=== PATIENT | male | born 1955 | race Caucasian/White ===

== ENCOUNTER 2023-06-18 09:54 | Outpatient (AMB) | payer MEDICARE, SELFPAY ==
[2023-06-18 10:05] VITALS: BP 134/86; PULSE 64; O2SAT 96; BMI 34.5
--- NOTE | 2023-06-18 10:05 | HO.NEPHOV ---
HPI HPI Comments History of Present Illness Details I had the privilege of seeing Papo follow-up of his chronic kidney disease and hypertension. He has gained some weight. He has been feeling well since aortic valve replacement. He does not have any chest pain, syncope, shortness of breath, proximal nocturnal dyspnea, orthopnea, pedal edema or orthostatic symptoms. He is compliant with his medications. He is less active. He has last serum creatinine was 1.5. All other systems have been reviewed and were negative. PFSH Family History Mother Cancer Father Heart attack Social History Alcohol intake: current Comment: social Patient Tobacco Use Status: Never used Tobacco Vital Signs 06/18/23 10:05 Height 5 ft 8 in Weight 227 lb BMI 34.5 BP 134/86 Blood Pressure Location Lt brachial Position Sitting Pulse 64 Pulse Source Pulse Oximeter Pulse Oximetry (%) 96 Oxygen Delivery Method Room Air Physical Exam Vital Signs: Last Vital Signs Pulse 64 06/18/23 10:05 BP 134/86 06/18/23 10:05 Pulse Ox 96 06/18/23 10:05 Oxygen Delivery Method Room Air 06/18/23 10:05 BMI result Body Mass Index 34.5 Const General: comfortable and no acute distress Orientation/consciousness: patient oriented x3 HEENT Head: Yes normocephalic Mouth: Normal oral and palatal mucosa present Eyes EOM: EOMs intact bilaterally Neck Neck: Yes supple Resp Auscultation: clear to auscultation bilaterally Cardio Jugular venous distension: no JVD Rate: regular rate GI Palpation (GI): Soft to palpation Auscultation: normal bowel sounds General: Yes no CVA tenderness Back/Spine/Pelvis Back: no CVA tenderness Skin General skin exam: no rashes or lesions noted Neuro General: patient oriented x3 and moves all extremities Extrem General: Yes no pedal edema Assessment & Plan Assessment & Plan (1) CKD (chronic kidney disease) stage 3, GFR 30-59 ml/min: Code(s): N18.30 - Chronic kidney disease, stage 3 unspecified Qualifiers: Chronic kidney disease stage 3 subtype: stage 3a (GFR 45-59) Qualified Code(s): N18.31 - Chronic kidney disease, stage 3a (2) Hypertension: Code(s): I10 - Essential (primary) hypertension Plan His renal functions are stable and is close to baseline. 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 His last 24 hour urine collection showed a GFR of 92 mL/minute. His urine output is good. He is tolerating his current dose of losartan. He avoids nonsteroidal anti-inflammatories and maintain good hydration. He is going disease PCP next week and Cardiology coli soon. He will need a follow-up echo echocardiogram. He needs to be more active and clearly needs to lose some weight. I did not make any medication changes today. I plan to do a repeat 24 hour urine collection for creatinine clearance after next visit. Follow-up lab work ordered. Answered all questions. Follow-up appointment given. Orders: Orders Creatinine Today N18.30 - Chronic kidney disease, stage 3 unspecified Protein Creatinine Ratio, Ur Today N18.30 - Chronic kidney disease, stage 3 unspecified Blood Urea Nitrogen Today N18.30 - Chronic kidney disease, stage 3 unspecified Electrolytes Today N18.30 - Chronic kidney disease, stage 3 unspecified Coding Level of Care Code Est Pt Level 4 (50435) Diagnoses Stage 3a chronic kidney disease N18.31 Chronic kidney disease stage 3 subtype: stage 3a (GFR 45-59) Hypertension I10 Results Reviewed Nephrology Results: No Data to Display
== END 2023-06-18 10:44 | disposition home or self-care (01) ==
PROVIDERS: PCP Nurse Practitioner Gerontology; Visit Provider Internal Medicine Nephrology
DX: N18.31 Chronic kidney disease, stage 3a (principal); I10 Essential (primary) hypertension
CPT/HCPCS: 99214

== ENCOUNTER → 2023-06-18 09:54 | Outpatient (BNVA) | payer MEDICARE, SELFPAY | PROVIDERS: PCP Nurse Practitioner Gerontology; Visit Provider Internal Medicine Nephrology | DX: I12.9 Hypertensive chronic kidney disease with stage 1 through stage 4 chronic kidney disease, or unspecified chronic kidney disease (principal); N18.31 Chronic kidney disease, stage 3a | CPT/HCPCS: 99212 ==

== ENCOUNTER 2024-01-07 09:22 | Outpatient (AMB) | payer MEDICARE, SELFPAY ==
--- NOTE | 2024-01-07 09:27 | HO.NEPHOV ---
Vital Signs 01/07/24 09:28 Height 5 ft 8 in Weight 216 lb 6 oz BMI 32.9 BP 112/80 Blood Pressure Location Rt brachial Position Sitting Pulse 59 Pulse Source Pulse Oximeter Pulse Oximetry (%) 96 Oxygen Delivery Method Room Air Intake Visit Reasons: 4-5 mon follow up- [facility] Poultryman Required: No Accompanied by: Self / Same As Patient Allergies No Known Allergies Allergy (Verified 01/07/24 09:29) HPI Comments Details: I had the privilege of seeing Papo follow-up of his chronic kidney disease and hypertension. He has gained some weight. He has been feeling well since aortic valve replacement. He does not have any chest pain, syncope, shortness of breath, proximal nocturnal dyspnea, orthopnea, pedal edema or orthostatic symptoms. He is compliant with his medications. He is less active. He has last serum creatinine was 1.24. All other systems have been reviewed and were negative [facility] Family History Mother Cancer Father Heart attack Social History Alcohol intake: current Comment: social Patient Tobacco Use Status: Never used Tobacco Review of Systems Const All systems reviewed & are unremarkable except as noted in HPI and below Physical Exam Vital Signs: Last Vital Signs Pulse 59 01/07/24 09:28 BP 112/80 01/07/24 09:28 Pulse Ox 96 01/07/24 09:28 Oxygen Delivery Method Room Air 01/07/24 09:28 BMI result Body Mass Index 32.9 Const General: comfortable and no acute distress Orientation/consciousness: patient oriented x3 HEENT Head: Yes normocephalic Mouth: Normal oral and palatal mucosa present Eyes EOM: EOMs intact bilaterally Neck Neck: Yes supple Resp Auscultation: clear to auscultation bilaterally Cardio Jugular venous distension: no JVD Rate: regular rate GI Palpation (GI): Soft to palpation Auscultation: normal bowel sounds General: Yes no CVA tenderness Back/Spine/Pelvis Back: no CVA tenderness Skin General skin exam: no rashes or lesions noted Neuro General: patient oriented x3 and moves all extremities Extrem General: Yes no pedal edema Results Reviewed Nephrology Results: No Data to Display Assessment & Plan Assessment & Plan (1) CKD (chronic kidney disease) stage 3, GFR 30-59 ml/min: Code(s): N18.30 - Chronic kidney disease, stage 3 unspecified Category: Medical Qualifiers: Chronic kidney disease stage 3 subtype: stage 3a (GFR 45-59) Qualified Code(s): N18.31 - Chronic kidney disease, stage 3a (2) Hypertension: Code(s): I10 - Essential (primary) hypertension Category: Medical Qualifiers: Hypertension type: primary hypertension Qualified Code(s): I10 - Essential (primary) hypertension Plan His renal functions are stable and is close to baseline. 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 His last 24 hour urine collection showed a GFR of 92 mL/minute. His urine output is good. He is tolerating his current dose of losartan. He avoids nonsteroidal anti-inflammatories and maintain good hydration. He needs to be more active and clearly needs to lose some more weight. I did not make any medication changes today. I plan to do a repeat 24 hour urine collection for creatinine clearance with time. Follow-up lab work ordered. Answered all questions. Follow-up appointment given Orders: Orders Creatinine 6 Months I10 - Essential (primary) hypertension, N18.31 - Chronic kidney disease, stage 3a Blood Urea Nitrogen 6 Months I10 - Essential (primary) hypertension, N18.31 - Chronic kidney disease, stage 3a Electrolytes 6 Months I10 - Essential (primary) hypertension, N18.31 - Chronic kidney disease, stage 3a Coding Level of Care Code Est Pt Level 4 (42071) Diagnoses Stage 3a chronic kidney disease N18.31 Chronic kidney disease stage 3 subtype: stage 3a (GFR 45-59) Primary hypertension I10 Hypertension type: primary hypertension
[2024-01-07 09:28] VITALS: BP 112/80; PULSE 59; O2SAT 96; BMI 32.9
== END 2024-01-07 09:52 | disposition home or self-care (01) ==
PROVIDERS: PCP Nurse Practitioner Gerontology; Visit Provider Internal Medicine Nephrology
DX: N18.31 Chronic kidney disease, stage 3a (principal); I10 Essential (primary) hypertension
CPT/HCPCS: 99214

== ENCOUNTER → 2024-01-07 09:22 | Outpatient (BNVA) | payer MEDICARE, SELFPAY | PROVIDERS: PCP Nurse Practitioner Gerontology; Visit Provider Internal Medicine Nephrology | DX: I12.9 Hypertensive chronic kidney disease with stage 1 through stage 4 chronic kidney disease, or unspecified chronic kidney disease (principal); N18.31 Chronic kidney disease, stage 3a | CPT/HCPCS: 99212 ==

== ENCOUNTER 2024-07-07 10:06 | Outpatient (AMB) | payer MEDICARE, OTHER, SELFPAY ==
--- NOTE | 2024-07-07 10:30 | HO.NEPHOV ---
Vital Signs 07/07/24 10:31 Height 5 ft 8 in Weight 220 lb 4 oz BMI 33.5 BP 134/70 Blood Pressure Location Lt brachial Position Sitting Pulse 61 Pulse Source Pulse Oximeter Pulse Oximetry (%) 95 Oxygen Delivery Method Room Air Intake Visit Reasons: 6m follow up-Conf Accompanied by: Self / Same As Patient Allergies No Known Allergies Allergy (Verified 07/07/24 10:31) HPI Comments Details: Papo was seen in follow-up of his chronic kidney disease and hypertension. He has gained some weight. He has been feeling well since aortic valve replacement. He does not have any chest pain, syncope, shortness of breath, proximal nocturnal dyspnea, orthopnea, pedal edema or orthostatic symptoms. He is compliant with his medications. He is less active. He has last serum creatinine was 1.3. All other systems have been reviewed and were negative [facility] Family History Mother Cancer Father Heart attack Social History Alcohol intake: current Comment: social Patient Tobacco Use Status: Never used Tobacco Review of Systems Const All systems reviewed & are unremarkable except as noted in HPI and below Physical Exam Vital Signs: Last Vital Signs Pulse 61 07/07/24 10:31 BP 134/70 07/07/24 10:31 Pulse Ox 95 07/07/24 10:31 Oxygen Delivery Method Room Air 07/07/24 10:31 BMI result Body Mass Index 33.5 Const General: comfortable and no acute distress Orientation/consciousness: patient oriented x3 HEENT Head: Yes normocephalic Mouth: Normal oral and palatal mucosa present Eyes EOM: EOMs intact bilaterally Neck Neck: Yes supple Resp Auscultation: clear to auscultation bilaterally Cardio Jugular venous distension: no JVD Rate: regular rate GI Palpation (GI): Soft to palpation Auscultation: normal bowel sounds General: Yes no CVA tenderness Back/Spine/Pelvis Back: no CVA tenderness Skin General skin exam: no rashes or lesions noted Neuro General: patient oriented x3 and moves all extremities Extrem General: Yes no pedal edema Results Reviewed Nephrology Results: No Data to Display Assessment & Plan Assessment & Plan (1) CKD (chronic kidney disease) stage 3, GFR 30-59 ml/min: Code(s): N18.30 - Chronic kidney disease, stage 3 unspecified Category: Medical Qualifiers: Chronic kidney disease stage 3 subtype: stage 3a (GFR 45-59) Qualified Code(s): N18.31 - Chronic kidney disease, stage 3a (2) Hypertension: Code(s): I10 - Essential (primary) hypertension Category: Medical Qualifiers: Hypertension type: primary hypertension Qualified Code(s): I10 - Essential (primary) hypertension Plan His renal functions are stable and is close to baseline. 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 His last 24 hour urine collection showed a GFR of 92 mL/minute. His urine output is good. He is tolerating his current dose of losartan. He avoids nonsteroidal anti-inflammatories and maintain good hydration. He needs to be more active and clearly needs to lose some more weight. I did not make any medication changes today. I ordered repeat 24 hour urine collection for creatinine clearance prior to next visit . Follow-up lab work ordered. Answered all questions. Follow-up appointment given Orders: Orders Creatinine 6 Months I10 - Essential (primary) hypertension, N18.31 - Chronic kidney disease, stage 3a Creatinine Clearance Urine 24U Today I10 - Essential (primary) hypertension, N18.31 - Chronic kidney disease, stage 3a Electrolytes 6 Months I10 - Essential (primary) hypertension, N18.31 - Chronic kidney disease, stage 3a Blood Urea Nitrogen 6 Months I10 - Essential (primary) hypertension, N18.31 - Chronic kidney disease, stage 3a Protein Creatinine Ratio, Ur Today I10 - Essential (primary) hypertension, N18.31 - Chronic kidney disease, stage 3a Coding Level of Care Code Est Pt Level 4 (89577) Diagnoses Stage 3a chronic kidney disease N18.31 Chronic kidney disease stage 3 subtype: stage 3a (GFR 45-59) Primary hypertension I10 Hypertension type: primary hypertension
[2024-07-07 10:31] VITALS: BP 134/70; PULSE 61; O2SAT 95; BMI 33.5
--- OUTSIDE RECORDS SUMMARY | 2024-07-07 11:47 | XMS_ITS | Clinical Summary ---
Author Organization [facility] Address [address] [facility] [address] [place] [address] Phone Care Team Providers Care Telecommunications Cable Jointer Name Role Phone Kya Espino MERT Primary Care Provider [phone] Allergies Active Allergy Reactions Criticality Noted Date Comments Morphine Other (see comments) 08/04/2020 Medications aspirin (ST CHARY) 81 MG EC tablet Take 1 tablet by mouth every morning Active atorvastatin (LIPITOR) 40 MG tablet Take 1 tablet by mouth every night Active losartan (COZAAR) 25 MG tablet Take 1 tablet by mouth 1 (one) time each day Active metoprolol succinate XL (TOPROL-XL) 25 MG 24 hr tablet Take 12.5 tablets by mouth every night Active amoxicillin (AMOXIL) 500 MG capsule 4 CAPSULE GIVEN 1 HOUR PRIOR TO THE PROCEDURE Active Active Problems Problem Noted Date Diagnosed Date Aortic valve stenosis 04/23/2022 Cardiac murmur 04/23/2022 Chronic low back pain 04/23/2022 History of aortic valve replacement 04/23/2022 Hyperlipidemia 04/23/2022 Obese class I 04/23/2022 Hypertension 02/09/2021 Stage 3a chronic kidney disease 08/04/2020 Hypertensive renal disease 08/04/2020 Immunizations Name Administration Dates Next Due Influenza Whole 12/08/2020 Pneumococcal Polysaccharide 10/10/2016 Family History Relation Status Comments Father Mother Social History Tobacco Use Types Packs/Day Years Used Date Smoking Tobacco: Former Smokeless Tobacco: Never Tobacco Cessation:Counseling Given: Not Answered Alcohol Use Standard Drinks/Week Comments Yes 0 (1 standard drink = 0.6 oz pure alcohol) Alcoholic Drinks/day: Occasional social drink Sex and Gender Information Value Date Recorded Sex Assigned at Not on file Legal Sex Male 5:06 PM EST Gender Identity Not on file Sexual Orientation Not on file Last Filed Vital Signs Vital Sign Reading Time Taken Comments Blood Pressure 130/80 12/06/2022 2:29 PM EDT Pulse 68 12/06/2022 2:29 PM EDT Temperature - - Respiratory Rate - - Oxygen Saturation 97% 02/09/2021 2:15 PM EST Inhaled Oxygen Concentration - - Weight 101 kg (222 lb 9.6 oz) 12/06/2022 2:29 PM EDT Height 172.7 cm (5' 8 ) 02/09/2021 2:15 PM EST Body Mass Index 33.85 02/09/2021 2:15 PM EST Plan of Treatment Health Maintenance Due Date Last Done Comments Colorectal Cancer Screening: Annual FOBT 2005 Colorectal Cancer Screening: Colonoscopy 2005 Colorectal Cancer Screening: Sigmoidoscopy 2005 Pneumococcal Vaccine: 65+ Ye ars (2 of 2 - PCV) 10/10/2017 10/10/2016 Influenza Vaccine (Season Ended) 2024 12/09/19 21 Hepatitis B Vaccine Aged Out No longe r eligible based on patient's age to complete this topic Insurance MEDICARE [facility] MEDICARE [facility] Care Teams Telecommunications Cable Jointer Relationship Specialty Start Date End Date Kya Espino NP [address] [place] [id number] PCP - General Nurse Practitioner 10/23/21
--- OUTSIDE RECORDS SUMMARY | 2024-07-07 11:47 | XMS_ITS | Clinical Summary ---
Author Organization Patient Business Ser [facility] Address [address] [place] [address] Care Team Providers Care Evs Tech Name Role Phone Kya Espino NP Primary Care Provider [phone] Allergies Active Allergy Reactions Criticality Noted Date Comments Morphine Medications losartan (COZAAR) 25 mg tablet TAKE 1 TABLET BY MOUTH EVERY DAY Active metoprolol succinate (TOPROL-XL) 25 mg 24 hr tablet TAKE 1 TABLET BY MOUTH EVERY DAY Active aspirin 81 mg EC tablet Take 1 Tab by mouth daily Active atorvastatin (LIPITOR) 40 mg tablet Take 1 Tab by mouth at bedtime Active amoxicillin (AMOXIL) 500 mg capsule Take 4 Caps by mouth See Admin Instructions. Take 1 hour prior to dental procedure Active Active Problems Problem Noted Date Diagnosed Date Hyperlipidemia Chest pain Overview (04/28/2024): CKD (chronic kidney disease) stage 3, GFR 30-59 ml/min Erectile dysfunction Hypertension Actinic keratosis Paroxysmal atrial fibrillation Immunizations Name Administration Dates Next Due PPD Test 03/11/2013 Tdap Tetanus diptheria acell ular pertussis (Boostrix; Adacel) 7yo and older 01/01/2013 influenza Split Preservative Free ID 12/30/2008 Surgical History Surgery Date Site/Laterality Comments OTHER SURGICAL HISTORY PROCEDURE: [place] RPLCMT AORTIC VALVE ANNULUS ENLGMENT NONC SINUS BACK SURGERY PROCEDURE: HISTORICAL BACK SURGERY; COMMENT: low back Medical History Medical History Date Comments Aortic valve replaced 08/07/2016 DX:Aortic valve replaced CKD (chronic kidney disease) stage 3, GFR 30-59 ml/min [facility]) 12/04/2018 DX:CKD (chronic kidney dise ase) stage 3, GFR 30-59 ml/min ([facility]) Hyperlipidemia 03/01/2015 DX:Hyperlipidemi a Actinic keratosis 07/23/2012 DX:Actinic ker atosis Erectile dysfunction 08/07/2016 DX:Erectile dysfunction Hypertension 03/13/2016 DX:Hypertension Paroxysmal atrial fibrillati on (CMS/HCC) 03/02/2009 DX:Paroxysmal atrial fibrill ation (HCC); COMMENT: After surgery for TAVR, needs antibiotic p/t dental procedures Family History Medical History Relation Name Comments Hypertension Brother Heart attack Father Emphysema Maternal Grandfather Hypertension Maternal Grandmother Breast cancer Mother Relation Name Status Comments Brother Father Maternal Grandfather Maternal Grandmother Mother Social History Tobacco Use Types Packs/Day Years Used Date Smoking Tobacco: Former Smokeless Tobacco: Never Alcohol Use Standard Drinks/Week Comments Yes 0 (1 standard drink = 0.6 oz pur e alcohol) Sex and Gender Information Value Date Recorded Sex Assigned at Male 03/23/2021 12:20 PM EST Legal Sex Male 12:06 PM EST Gender Identity Male 03/23/2021 12:20 PM EST Sexual Orientation Straight 03/23/2021 12 :20 PM EST Obstetrics History Last Filed Vital Signs Vital Sign Reading Time Taken Comments Blood Pressure 118/72 06/26/2023 9:00 AM EDT Pulse 77 06/26/2023 9:00 AM EDT Temperature - - Respiratory Rate - - Oxygen Saturation - - Inhaled Oxygen Concentration - - Weight 104 kg (230 lb) 06/26/2023 9:00 AM EDT Height 172.7 cm (5' 8 ) 06/26/2023 9:00 AM EDT Body Mass Index 34.97 06/26/2023 9:00 AM EDT Plan of Treatment Upcoming Encounters Date Type Department Care Team (Late st Contact Info) Description 09/22/2024 10:50 AM EDT Office Visit [facility] - [address] [facility] [address] [place] [id number] Shahzad Russell MD [address] [place] [address] Health Maintenance Due Date Last Done Comments COVID-19 Vaccine (#1) 1961 Pneumococcal Vaccine: 50+ Years (1 of 2 - PCV) 1975 Zoster Vaccines (1 of 2) 1975 RSV Immunization Adult Patients (1 - Risk 60-74 years 1-dose series) 2016 Abdominal Aortic Aneurysm (AAA) Screen 03/23/2021 Cholesterol Screening (Lipid Panel) 03/23/2021 Depression Screening 03/23/2021 Hepatitis C Screening 03/23/2021 Social Influencers of Health Screening 03/23/2021 Falls Risk Assessment 2021 DTaP,Tdap,and Td Vaccines (2 - Td or Tdap) 01/01/2023 01/01/2013 Medicare Annual Wellness Visit 06/14/2023 06/13/2022 Hypertension/CHF/CAD Annual BMP Blood Test 10/29/2023 Influenza Vaccine (Season Ended) 2024 01/02/2023, 01/16/2022, 12/30/2008 Colorectal Cancer Screening: Colonoscopy 01/26/2029 01/26/2019 HIB Vaccines Aged Out No longer eligi ble based on patient's age to complete this topic HPV Vaccines Aged Out No longer eligi ble based on patient's age to complete this topic Hepatitis A Vaccines Aged Out No long er eligible based on patient's age to complete this topic Hepatitis B Vaccines Aged Out No long er eligible based on patient's age to complete this topic IPV Vaccines Aged Out No longer eligi ble based on patient's age to complete this topic MMR Vaccines Aged Out No longer eligi ble based on patient's age to complete this topic Meningococcal ACWY Vaccine Aged Out N o longer eligible based on patient's age to complete this topic Meningococcal B Vaccine Aged Out No l onger eligible based on patient's age to complete this topic RSV Immunization Patients Under 20 months Aged Out No longer eligible b ased on patient's age to complete this topic Varicella Vaccines Aged Out No longer eligible based on patient's age to complete this topic Procedures Procedure Name Priority Date/Time Associated Diagnosis Comments COLONOSCOPY Routine 01/26/2019 from Last 3 Months or Most Recently Relevant to Health Maintenance Results * Colonoscopy (01/26/2019) Colonoscopy no interpretation , abstracted Anatomical Region Laterality Modality Other us Historical Provider HEALTH MAINTENANCE Final Result from Last 3 Months or Most Recently Relevant to Health Maintenance Insurance MEDICARE Care Teams Evs Tech Relationship Specialty Start Date End Date Kya Espino NP [address] [facility] [address] PCP - General 04/30/22
== END 2024-07-07 10:53 | disposition home or self-care (01) ==
LOC: HO.HKAS 10:06
PROVIDERS: PCP Nurse Practitioner Gerontology; Visit Provider Internal Medicine Nephrology
DX: N18.31 Chronic kidney disease, stage 3a (principal); I10 Essential (primary) hypertension
CPT/HCPCS: 99214

== ENCOUNTER → 2024-07-07 10:06 | Outpatient (BNVA) | payer MEDICARE, OTHER, SELFPAY | PROVIDERS: PCP Nurse Practitioner Gerontology; Visit Provider Internal Medicine Nephrology | DX: I12.9 Hypertensive chronic kidney disease with stage 1 through stage 4 chronic kidney disease, or unspecified chronic kidney disease (principal); N18.31 Chronic kidney disease, stage 3a | CPT/HCPCS: 99212 ==

== ENCOUNTER 2024-12-31 08:49 | Outpatient (REF) | payer MEDICARE, OTHER, SELFPAY ==
--- OUTSIDE RECORDS SUMMARY | 2024-12-31 09:24 | XMS_ITS | Clinical Summary ---
Author Organization [facility] Address [address] [facility] [address] [facility] [address] [place] [address] Phone Care Team Providers Care Preschool Teacher Name Role Phone Kya strauss MERT Primary Care Provider [phone] Allergies Active Allergy Reactions Criticality Noted Date [...] disease 08/04/2020 Hypertensive renal disease 08/04/2020 Immunizations Immunization Administration Dates Next Due Influenza Whole 12/08/2020 [...] Colorectal Cancer Screening: Sigmoidoscopy 2005 Pneumococcal Vaccine: 50+ Ye ars (2 of 2 - PCV) 10/10/2017 10/10/2016 Influenza Vaccine (#1) 2024 12/08/2020 Pneumococcal Vaccine: Peds ( 0 to 5 Years) and At-Risk Patients (6 to 49 Years) Discontinued 10/10/2016 Hepatitis B Vaccine Aged Out No longe r eligible based on patient's age to complete this topic Insurance Medicare [facility] Medicare [facility] [place] [id number] Care Teams Preschool Teacher Relationship Specialty Start Date End Date Kya Espino NP [address] [place] [id number] PCP - General Nurse Practitioner 10/23/21
--- OUTSIDE RECORDS SUMMARY | 2024-12-31 09:24 | XMS_ITS | Clinical Summary ---
Author Organization [facility] Address [address] [place] [address] Care Team Providers Care Sheet Metal Technician Name Role Phone Kya Espino NP Primary Care Provider [phone] Allergies Active Allergy Reactions Criticality Noted Date Comments Morphine Medications metoprolol succinate (TOPROL-XL) 25 mg 24 hr tablet Take 0.5 tablets (12.5 mg total) by mouth 1 (one) time each day. TAKE 1 TABLET BY MOUTH EVERY DAY Active aspirin 81 mg EC tablet Take 1 Tab by mouth daily Active atorvastatin (LIPITOR) 40 mg tablet Take 1 Tab by mouth at bedtime Active amoxicillin (AMOXIL) 500 mg capsule Take 4 Caps by mouth See Admin Instructions. Take 1 hour prior to dental procedure Active losartan (COZAAR) 25 mg tablet TAKE 1 TABLET BY MOUTH EVERY DAY 90 tablet 3 12/05/19 25 Active losartan (COZAAR) 25 mg tablet TAKE 1 TABLET BY MOUTH EVERY DAY 90 tablet 09/08/19 25 025 Discontinued Active Problems Problem Noted Date Diagnosed Date History of aortic valve repl acement with bioprosthetic valve 09/22/2024 Assessment & Plan (09/22/2024 12:41 PM EDT): Valve function is normal by physical exam. Will continue endocarditis prophylaxis with amoxicillin. Will repeat echocardiogram in a year. Ascending aorta dilation (CMS/HCC V24) Assessment & Plan (09/22/2024 12:41 PM EDT): Ascending aorta mildly dilated. We reviewed again the precaution and hypertension control. Will repeat echocardiogram next year. He is a former smoker and also has mild ascending aorta dilation. Will schedule abdominal aorta to make sure he does not have abdominal aorta dilation. Hyperlipidemia Chest pain Overview (04/28/2024): CKD (chronic kidney disease) stage 3, GFR 30-59 ml/min (CMS/HCC V24, CMS/HCC V28) Erectile dysfunction Hypertension Actinic keratosis Paroxysmal atrial fibrillation (CMS/HCC V24, CMS /HCC V28) Assessment & Plan (09/22/2024 12:41 PM EDT): Postop for AVR. No evidence of recurrent. Will continue low-dose metoprolol and aspirin. Orders: ECG 12 lead Encounters Date Type Department Care Team Description 10/22/2024 7:45 AM EDT Ancillary Procedure [facility] [address] [place] [address] Smoking history; Screening for AAA (abdominal aortic aneurysm) from Last 3 Months Immunizations Immunization Administration Dates Next Due PPD Test 03/11/2013 Tdap Tetanus diptheria acell ular pertussis (Boostrix; Adacel) 7yo and older 01/01/2013 influenza Split Preservative Free ID 12/30/2008 Surgical History Surgery Date Site/Laterality Comments OTHER SURGICAL HISTORY PROCEDURE: CO RPLCMT AORTIC VALVE ANNULUS ENLGMENT NONC SINUS BACK SURGERY PROCEDURE: HISTORICAL BACK SURGERY; COMMENT: low back Medical History Medical History Date Comments Aortic valve replaced 08/07/2016 DX:Aortic valve replaced CKD (chronic kidney disease) stage 3, GFR 30-59 ml/min (CMS/HCC V24, CMS/HCC V28) 12/04/2018 DX:CKD (chronic kidney disea se) stage 3, GFR 30-59 ml/min ([facility]) Hyperlipidemia 03/01/2015 DX:Hyperlipidemi a Actinic keratosis 07/23/2012 DX:Actinic ker atosis Erectile dysfunction 08/07/2016 DX:Erectile dysfunction Hypertension 03/13/2016 DX:Hypertension Paroxysmal atrial fibrillati on (CMS/HCC V24, CMS/HCC V28) 03/02/2009 DX:Paroxysmal atrial fibril lation (HCC); COMMENT: After surgery for TAVR, needs [...] Reading Time Taken Comments Blood Pressure 130/80 09/22/2024 10:40 AM EDT Pulse 59 09/22/2024 10:40 AM EDT Temperature - - Respiratory Rate - - Oxygen Saturation 98% 09/22/2024 10:40 AM EDT Inhaled Oxygen Concentration - - Weight 100 kg (221 lb) 09/22/2024 10:40 AM EDT Height 172.7 cm (5' 8 ) 09/22/2024 10:40 AM EDT Body Mass Index 33.6 09/22/2024 10:40 AM EDT Plan of Treatment Upcoming Encounters Date Type Department Care Team (Late st Contact Info) Description 09/22/2025 8:00 AM EDT Ancillary Procedure [facility] - [address] [place] [address] Health Maintenance Due Date Last Done Comments Pneumococcal Vaccine: 50+ Years (2 of 2 - PCV) 10/10/2017 10/10/2016 Cholesterol Screening (Lipid Panel) 03/23/2021 Hepatitis C Screening 03/23/2021 Social Influencers of Health Screening 03/23/2021 Falls Risk Assessment 2021 Medicare Annual Wellness Visit 06/14/2023 06/13/2022 Hypertension/CHF/CAD Annual BMP Blood Test 10/29/2023 Depression Screening 04/01/2024 COVID-19 Vaccine ( - season) 2024 03/28/2021, 09/12/2020, 08/12/2020 Influenza Vaccine (#1) 2024 , 01/02/2023, 01/16/2022, Additional history exists Colorectal Cancer Screening: Colonoscopy 01/26/2029 01/26/2019 DTaP,Tdap,and Td Vaccines (3 - Td or Tdap) 05/01/2031 05/01/2021, 01/01/2013 RSV Immunization Adult Patients Completed 06/25/2023 Zoster Vaccines Completed 09/10/2023, 07/08/2023 Abdominal Aortic Aneurysm (AAA) Screen Discontinued 10/22/2024 HIB Vaccines Aged Out No longer eligi [...] 20 months Aged Out No longer eligible based on patient's age to complete this topic Varicella Vaccines Aged Out No longer eligible based on patient's age to complete this topic Procedures Procedure Name Priority Date/Time Associated Diagnosis Comments VAS US DUPLEX AAA SCREENING Routine 10/22/2024 7:59 AM EDT Smoking history Screening for AAA (abdominal aortic aneurysm) COLONOSCOPY Routine 01/26/2019 from Last 3 Months or Most Recently Relevant to Health Maintenance Results * Vascular US abdominal aorta aneurysm (AAA) screening (10/22/2024 7:59 AM EDT) Abdominal dist aorta ana 64 cm/s CV VAS LAB Abdominal mid aorta ana 67 cm/s CV [facility] Abdominal prox aorta ana 63 cm/s CV [facility] Abdominal prox aorta AP 2.10 cm CV [facility] Abdominal prox aorta trans 2.13 cm CV VAS LAB Proximal Aorta Long Diameter 2.13 cm CV [facility] Abdominal mid aorta AP 2.10 cm CV VAS LAB Abdominal mid aorta trans 2.10 cm CV VAS LAB Mid Aorta Long Diameter 2.09 cm CV VAS LAB Abdominal dist aorta AP 2.07 cm CV VAS LAB Abdominal dist aorta trans 2.07 cm CV VAS LAB Dist Aorta Long Diameter 2.07 cm CV VAS LAB Abdominal rt com iliac AP 1.75 cm CV VAS LAB Right Common Iliac Long Diameter 1.75 cm CV VAS LAB Right Dist Common Iliac PSV 118 cm/s CV VAS LAB Abdominal lt com iliac AP 1.84 cm CV VAS LAB Left Common Iliac Long Diameter 1.84 cm CV VAS LAB Left Dist Common Iliac PSV 93 cm/s CV VAS LAB Anatomical Region Laterality Modality Vascular, Abdomen Ultrasound Narrative 10/22/2024 8:17 PM EDT No evidence of an abdominal aortic aneurysm noted. 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 A less than 50% stenosis noted in the aorta and bilateral common iliac arteries. Environmental Resource Specialist Details A gutierrez scale, color and doppler analysis ultrasound was performed. During the study longitudinal and transverse views were obtained. Continuous wave doppler and pulsed wave doppler was performed. Overall the study quality was poorly visualized. Study was technically difficult due to: body habitus and bowel gas. Shahzad Russell MD CV VASCULAR PROCEDURES Final Res ult * Hm Colonoscopy (01/26/2019) HM Colonoscopy no interpretation , abstracted Anatomical Region Laterality Modality Other Historical Provider HEALTH MAINTENANCE Final Result from Last 3 Months or Most Recently Relevant to Health Maintenance Insurance MEDICARE [employer] Care Teams Sheet Metal Technician Relationship Specialty Start Date End Date Kya Espino NP [address] [facility] [place] [address] PCP - General 04/30/22
[2024-12-31 13:50] LABS: Blood Urea Nitrogen 18 mg/dL (9-16); Estimated Glomerular Filt Rate 59
[2024-12-31 14:02] LABS: Creatinine, mg/dL 76.88
[2024-12-31 14:09] LABS: Creatinine (CrCl) 1.23 mg/dL (0.5-1.4); Total Volume 24 Hour Urine 1925 mL
[2024-12-31 15:28] LABS: Protein/Creatinine Ratio, Ur 0.11 (<0.2); Total Protein Urine Random 8 mg/dL (<12)
== END 2024-12-31 08:50 | disposition home or self-care (01) ==
LOC: HO.HKASLDS 08:49
PROVIDERS: Visit Provider Internal Medicine Nephrology
DX: I12.9 Hypertensive chronic kidney disease with stage 1 through stage 4 chronic kidney disease, or unspecified chronic kidney disease (principal); N18.31 Chronic kidney disease, stage 3a
CPT/HCPCS: 36415; 82565; 82570; 82575; 84156; 84520

== ENCOUNTER 2025-03-09 14:38 | Outpatient (AMB) | payer MEDICARE, OTHER, SELFPAY ==
--- NOTE | 2025-03-09 14:49 | HO.NEPHOV ---
Vital Signs 03/09/25 14:50 Height 5 ft 8 in Weight 226 lb 6 oz BMI 34.4 BP 142/82 H Blood Pressure Location Lt brachial Position Sitting Pulse 64 Pulse Source Pulse Oximeter Pulse Oximetry (%) 100 Oxygen Delivery Method Room Air Intake Visit Reasons: 6mon follow-up w/labs-Conf Assignment Officer Required: No Accompanied by: Self / Same As Patient Allergies No Known Allergies Allergy (Verified 03/09/25 14:49) HPI Comments Details: Papo was seen in follow-up of his chronic kidney disease and hypertension. He has gained some weight. He has been feeling well since aortic valve replacement. He does not have any chest pain, syncope, shortness of breath, proximal nocturnal dyspnea, orthopnea, pedal edema or orthostatic symptoms. He is compliant with his medications. He is less active. He has last serum creatinine was 1.23. All other systems have been reviewed and were negative [facility] Family History Mother Cancer Father Heart attack Social History Alcohol intake: current Comment: social Patient Tobacco Use Status: Never used Tobacco Review of Systems Const All systems reviewed & are unremarkable except as noted in HPI and below Physical Exam Const General: comfortable and no acute distress Orientation/consciousness: patient oriented x3 HEENT Head: Yes normocephalic Mouth: Normal oral and palatal mucosa present Eyes EOM: EOMs intact bilaterally Neck Neck: Yes supple Resp Auscultation: clear to auscultation bilaterally Cardio Jugular venous distension: no JVD Rate: regular rate Heart sounds: Murmur heart sound present GI Palpation (GI): Soft to palpation Auscultation: normal bowel sounds General: Yes no CVA tenderness Back/Spine/Pelvis Back: no CVA tenderness Skin General skin exam: no rashes or lesions noted Neuro General: patient oriented x3 and moves all extremities Extrem General: Yes no pedal edema Results Reviewed Nephrology Results: BUN, (9-16) 18 mg/dL H 12/31/24 Creatinine, (0.5-1.4) 1.23 mg/dL 12/31/24 Urine Creatinine 73.94 mg/dL 12/31/24 Protein/Creatinin Ratio, (<0.2) 0.11 12/31/24 Assessment & Plan Assessment & Plan (1) CKD (chronic kidney disease) stage 3, GFR 30-59 ml/min: Code(s): N18.30 - Chronic kidney disease, stage 3 unspecified Category: Medical Qualifiers: Chronic kidney disease stage 3 subtype: stage 3a (GFR 45-59) Qualified Code(s): N18.31 - Chronic kidney disease, stage 3a (2) Hypertension: Code(s): I10 - Essential (primary) hypertension Category: Medical Qualifiers: Hypertension type: primary hypertension Qualified Code(s): I10 - Essential (primary) hypertension Plan His renal functions are stable and is close to baseline. 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 His last 24 hour urine collection showed a GFR of 83.5 mL/minute. His urine output is good. He is tolerating his current dose of losartan. He avoids nonsteroidal anti-inflammatories and maintain good hydration. He needs to be more active and clearly needs to lose some more weight. I did not make any medication changes today. Follow-up lab work ordered. Follow-up appointment given Orders: Orders Electrolytes 6 Months I10 - Essential (primary) hypertension, N18.31 - Chronic kidney disease, stage 3a Creatinine 6 Months I10 - Essential (primary) hypertension, N18.31 - Chronic kidney disease, stage 3a Blood Urea Nitrogen 6 Months I10 - Essential (primary) hypertension, N18.31 - Chronic kidney disease, stage 3a Coding Level of Care Code Est Pt Level 4 (56145) Diagnoses Stage 3a chronic kidney disease N18.31 Chronic kidney disease stage 3 subtype: stage 3a (GFR 45-59) Primary hypertension I10 Hypertension type: primary hypertension
[2025-03-09 14:50] VITALS: BP 142/82; PULSE 64; O2SAT 100; BMI 34.4
== END 2025-03-09 15:17 | disposition home or self-care (01) ==
LOC: HO.HKAS 14:39
PROVIDERS: PCP Nurse Practitioner Gerontology; Visit Provider Internal Medicine Nephrology
DX: N18.31 Chronic kidney disease, stage 3a (principal); I10 Essential (primary) hypertension
CPT/HCPCS: 99214

== ENCOUNTER → 2025-03-09 14:38 | Outpatient (BNVA) | payer MEDICARE, OTHER, SELFPAY | PROVIDERS: PCP Nurse Practitioner Gerontology; Visit Provider Internal Medicine Nephrology | DX: N18.31 Chronic kidney disease, stage 3a (principal); I12.9 Hypertensive chronic kidney disease with stage 1 through stage 4 chronic kidney disease, or unspecified chronic kidney disease; Z95.2 Presence of prosthetic heart valve | CPT/HCPCS: 99212 ==